=== PATIENT | male | born 1940 | race Caucasian/White ===

== ENCOUNTER 2020-07-27 11:03 | Inpatient (IN) | payer OTHER, BC ==
[2020-07-27 12:36] LABS: BASO % 0.5 % (0-2.0); EOS % 0.3 % (0-4.5); HEMATOCRIT 45.7 % (35.4-49); HEMOGLOBIN 14.8 GM/dL (11.7-16.9); LYMPH % 10.2 % (8-40); MCH 28.6 pg (25.7-33.7); MCHC 32.3 g/dl (32.0-35.9); MEAN CELL VOLUME 88.6 fl (80-96); MEAN PLT VOLUME 8.7 fl (7.5-11.1); PLATELET COUNT 277 K/MM3 (134-434); RBC 5.16 M/mm3 (4.00-5.60); RDW 14.5 % (11.9-15.9); WHITE BLOOD COUNT 11.9 K/mm3 (4.0-10.0)
[2020-07-27 12:49] LABS: CALCIUM 9.4 mg/dL (8.5-10.1)
[2020-07-27 12:50] LABS: ALBUMIN 3.1 g/dl (3.4-5.0); BLOOD UREA NITROGEN 19.4 mg/dL (7-18)
[2020-07-27 12:53] LABS: CREATININE 0.9 mg/dL (0.55-1.3); INR 1.07 (0.83-1.09); PROTHROMBIN TIME (PATIENT) 13.1 SEC (9.7-13.0)
[2020-07-27 12:54] LABS: TOT PROT 7.1 g/dl (6.4-8.2)
[2020-07-27 12:56] LABS: ACTIVATED PTT 23.5 SECONDS (25.2-36.5)
[2020-07-27] MEDS ORDERED: SODIUM CHLORIDE 1,000 ML IV STA (13:14)
[2020-07-27] MEDS ORDERED: AZITHROMYCIN IVPB 500 MG in DEXTROSE 5%-WATER - 250 ML IVPB ONE (14:17)
[2020-07-27] MEDS ORDERED: CEFTRIAXONE 1,000 MG in DEXTROSE 5%-WATER - 50 ML IVPB ONE (14:17)
[2020-07-27] MEDS ORDERED: AZITHROMYCIN IVPB 500 MG/250 ML BAG IVPB ONE (14:28)
[2020-07-27] MEDS ORDERED: CEFTRIAXONE 1 GM/50 ML BAG ONE (14:28)
[2020-07-27 18:02] LABS: EPI CELLS 15 /uL (0-25.1); HYALINE CASTS 3 /uL (0-3.1); URINE APPEARANCE CLEAR; URINE BACTERIA 14 /uL (0-1359); URINE BILIRUBIN NEGATIVE (NEGATIVE); URINE COLOR DK YELLOW; URINE GLUCOSE (UA) NEGATIVE (NEGATIVE); URINE KETONE TRACE (NEGATIVE); URINE LEUK ESTERASE NEGATIVE (NEGATIVE); URINE NITRITE NEGATIVE (NEGATIVE); URINE PROTEIN TRACE (NEGATIVE); URINE WBC 11 /uL (0-25.8)
[2020-07-27 18:21] LABS: URINE RBC 95.1 /uL (0-23.9)
[2020-07-27 18:31] LABS: COCAINE, UR NEGATIVE ng/ml (CUTOFF=300); URINE AMPHETAMINES NEGATIVE ng/ml (CUTOFF=500); URINE BARBITURATES NEGATIVE ng/ml (CUTOFF=200); URINE BENZODIAZEPINES NEGATIVE ng/ml (CUTOFF=200)
[2020-07-27 18:32] LABS: METHADONE, UR NEGATIVE ng/ml (CUTOFF=300)
[2020-07-27 18:36] LABS: OPIATES, URI NEGATIVE ng/ml (CUTOFF=300); PHENCYCLIDINE,URINE NEGATIVE ng/ml (CUTOFF=25)
[2020-07-27] MEDS ORDERED: LACTATED RINGERS SOLUTION 1,000 ML/1,000 ML INFUS.BAG IV SCH (19:30)
[2020-07-27] MEDS ORDERED: QUEtiapine FUMARATE 50 MG TABLET ONE (21:20)
[2020-07-27] MEDS: QUEtiapine FUMARATE 50 MG TABLET PO SCH (21:33)
[2020-07-27] MEDS: HEPARIN NA (PORCINE) 5,000 UNITS/ML 1ML VIAL SQ SCH (21:33)
[2020-07-27] MEDS ORDERED: QUEtiapine FUMARATE 100 MG TABLET (FP) PO SCH (22:00)
[2020-07-28 07:40] LABS: BASO % 0.8 % (0-2.0); EOS % 1.2 % (0-4.5); HEMATOCRIT 37.2 % (35.4-49); HEMOGLOBIN 11.9 GM/dL (11.7-16.9); LYMPH % 16.2 % (8-40); MEAN CELL VOLUME 87.6 fl (80-96); MEAN PLT VOLUME 8.2 fl (7.5-11.1); MONO % 7.5 % (3.8-10.2); NEUT % 74.3 % (42.8-82.8); PLATELET COUNT 192 K/MM3 (134-434); POTASSIUM 3.6 mmol/L (3.5-5.1); RBC 4.25 M/mm3 (4.00-5.60); RDW 14.4 % (11.9-15.9); WHITE BLOOD COUNT 9.7 K/mm3 (4.0-10.0)
[2020-07-28 07:44] LABS: ALBUMIN 2.6 g/dl (3.4-5.0); BLOOD UREA NITROGEN 18.3 mg/dL (7-18); CALCIUM 8.6 mg/dL (8.5-10.1); MAGNESIUM 1.7 mg/dL (1.8-2.4)
[2020-07-28 07:47] LABS: CREATININE 0.7 mg/dL (0.55-1.3)
[2020-07-28 07:49] LABS: BILIRUBIN,TOTAL 0.8 mg/dL (0.2-1); TOT PROT 5.7 g/dl (6.4-8.2)
[2020-07-28] MEDS ORDERED: RAMIPRIL 5 MG CAPSULE PO SCH (10:00)
[2020-07-28] MEDS ORDERED: AZITHROMYCIN IVPB 500 MG/250 ML BAG IVPB SCH (10:00)
[2020-07-28] MEDS ORDERED: TAMSULOSIN HCL 0.4 MG CAP PO SCH (10:00)
[2020-07-28] MEDS ORDERED: CEFTRIAXONE 1 GM in DEXTROSE 5%-WATER - 50 ML IVPB SCH (10:00)
[2020-07-28] MEDS ORDERED: DEXTROSE 5%-WATER - 50 ML IVPB ONE (10:33)
[2020-07-28] MEDS ORDERED: cefTRIAXone SODIUM 1 GM VIAL ONE (10:33)
[2020-07-28] MEDS: QUEtiapine FUMARATE 50 MG TABLET PO SCH ×2 (10:39→20:59)
[2020-07-28] MEDS: HEPARIN NA (PORCINE) 5,000 UNITS/ML 1ML VIAL SQ SCH (10:40)
[2020-07-28] MEDS ORDERED: AMMONIUM LACTATE 12% LOTION 225 GM BOTTLE TP PRN ×2 (12:12→14:38)
[2020-07-28] MEDS: LACTATED RINGERS SOLUTION 1,000 ML/1,000 ML INFUS.BAG IV SCH (17:30)
[2020-07-28] MEDS: APIXABAN 5 MG TABLET PO SCH (20:59)
[2020-07-28] MEDS ORDERED: HEPARIN NA (PORCINE) 5,000 UNITS/ML 1ML VIAL SQ SCH (22:00)
[2020-07-29 08:01] LABS: BASO % 0.9 % (0-2.0); EOS % 5.8 % (0-4.5); HEMOGLOBIN 11.9 GM/dL (11.7-16.9); LYMPH % 18.7 % (8-40); MEAN PLT VOLUME 8.1 fl (7.5-11.1); MONO % 6.7 % (3.8-10.2); NEUT % 67.9 % (42.8-82.8); PLATELET COUNT 182 K/MM3 (134-434); RDW 14.4 % (11.9-15.9)
[2020-07-29 08:17] LABS: POTASSIUM 3.4 mmol/L (3.5-5.1)
[2020-07-29 08:19] LABS: ALBUMIN 2.6 g/dl (3.4-5.0); BLOOD UREA NITROGEN 22.7 mg/dL (7-18); CALCIUM 8.9 mg/dL (8.5-10.1); MAGNESIUM 1.9 mg/dL (1.8-2.4)
[2020-07-29 08:23] LABS: CREATININE 0.7 mg/dL (0.55-1.3)
[2020-07-29 08:24] LABS: BILIRUBIN,TOTAL 0.7 mg/dL (0.2-1); TOT PROT 5.6 g/dl (6.4-8.2)
[2020-07-29] MEDS ORDERED: POTASSIUM CHLORIDE ORAL LIQUID 20 MEQ/15 ML PO ONE (09:04)
[2020-07-29] MEDS ORDERED: DEXTROSE 5%-WATER - 50 ML IVPB ONE (09:59)
[2020-07-29] MEDS ORDERED: cefTRIAXone SODIUM 1 GM VIAL ONE (09:59)
[2020-07-29] MEDS: AZITHROMYCIN IVPB 500 MG/250 ML BAG IVPB SCH (10:11)
[2020-07-29] MEDS: RAMIPRIL 5 MG CAPSULE PO SCH (10:11)
[2020-07-29] MEDS: CEFTRIAXONE 1 GM in DEXTROSE 5%-WATER - 50 ML IVPB SCH (10:11)
[2020-07-29] MEDS: TAMSULOSIN HCL 0.4 MG CAP PO SCH (10:11)
[2020-07-29] MEDS: APIXABAN 5 MG TABLET PO SCH ×2 (10:12→21:57)
[2020-07-29] MEDS: QUEtiapine FUMARATE 50 MG TABLET PO SCH ×2 (10:12→21:56)
[2020-07-29] MEDS: PANTOPRAZOLE 40 MG TABLET PO SCH (11:04)
[2020-07-29] MEDS: DOCUSATE SODIUM 100 MG CAPSULE (FP) PO SCH ×2 (14:17→21:56)
[2020-07-29 15:08] VITALS: BMI 24.9
[2020-07-29] MEDS: LACTATED RINGERS SOLUTION 1,000 ML/1,000 ML INFUS.BAG IV SCH (16:30)
[2020-07-29] MEDS: ATORVASTATIN CA 80 MG TABLET (FP) PO SCH (21:58)
[2020-07-30] MEDS: DOCUSATE SODIUM 100 MG CAPSULE (FP) PO SCH ×3 (05:36→21:55)
[2020-07-30 07:53] LABS: POTASSIUM 3.8 mmol/L (3.5-5.1)
[2020-07-30 07:55] LABS: BASO % 0.8 % (0-2.0); EOS % 6.6 % (0-4.5); HEMATOCRIT 36.6 % (35.4-49); HEMOGLOBIN 12.3 GM/dL (11.7-16.9); LYMPH % 17.8 % (8-40); MCH 29.2 pg (25.7-33.7); MCHC 33.6 g/dl (32.0-35.9); MEAN CELL VOLUME 86.9 fl (80-96); MEAN PLT VOLUME 8.3 fl (7.5-11.1); MONO % 6.4 % (3.8-10.2); NEUT % 68.4 % (42.8-82.8); PLATELET COUNT 211 K/MM3 (134-434); RBC 4.22 M/mm3 (4.00-5.60); RDW 14.3 % (11.9-15.9); WHITE BLOOD COUNT 8.9 K/mm3 (4.0-10.0)
[2020-07-30 08:01] LABS: ALBUMIN 2.6 g/dl (3.4-5.0); BLOOD UREA NITROGEN 19.6 mg/dL (7-18); MAGNESIUM 1.8 mg/dL (1.8-2.4)
[2020-07-30 08:04] LABS: CREATININE 0.6 mg/dL (0.55-1.3)
[2020-07-30 08:05] LABS: BILIRUBIN,TOTAL 0.6 mg/dL (0.2-1); TOT PROT 5.8 g/dl (6.4-8.2)
[2020-07-30] MEDS ORDERED: DEXTROSE 5%-WATER - 50 ML IVPB ONE (09:41)
[2020-07-30] MEDS ORDERED: cefTRIAXone SODIUM 1 GM VIAL ONE (09:41)
[2020-07-30] MEDS ORDERED: metoPROLOL SUCCINATE 25 MG TAB.SR.24H (FP) PO SCH (10:00)
[2020-07-30] MEDS: TAMSULOSIN HCL 0.4 MG CAP PO SCH (11:20)
[2020-07-30] MEDS: RAMIPRIL 5 MG CAPSULE PO SCH (11:20)
[2020-07-30] MEDS: metoPROLOL SUCCINATE 25 MG TAB.SR.24H (FP) PO SCH (11:20)
[2020-07-30] MEDS: CEFTRIAXONE 1 GM in DEXTROSE 5%-WATER - 50 ML IVPB SCH (11:21)
[2020-07-30] MEDS: PANTOPRAZOLE 40 MG TABLET PO SCH (11:21)
[2020-07-30] MEDS: APIXABAN 5 MG TABLET PO SCH ×2 (11:21→21:55)
[2020-07-30] MEDS: QUEtiapine FUMARATE 50 MG TABLET PO SCH ×2 (11:21→21:55)
[2020-07-30] MEDS: AZITHROMYCIN IVPB 500 MG/250 ML BAG IVPB SCH (11:26)
[2020-07-30] MEDS: LACTATED RINGERS SOLUTION 1,000 ML/1,000 ML INFUS.BAG IV SCH ×2 (11:56→14:51)
[2020-07-30] MEDS: ATORVASTATIN CA 80 MG TABLET (FP) PO SCH (21:55)
[2020-07-31] MEDS: DOCUSATE SODIUM 100 MG CAPSULE (FP) PO SCH ×3 (06:37→23:01)
[2020-07-31 08:19] LABS: EOS % 6.4 % (0-4.5); HEMATOCRIT 35.3 % (35.4-49); LYMPH % 16.8 % (8-40); MCH 29.4 pg (25.7-33.7); MCHC 33.9 g/dl (32.0-35.9); MEAN PLT VOLUME 8.5 fl (7.5-11.1); MONO % 7.3 % (3.8-10.2); NEUT % 68.5 % (42.8-82.8); PLATELET COUNT 187 K/MM3 (134-434); RBC 4.06 M/mm3 (4.00-5.60); RDW 14.3 % (11.9-15.9); WHITE BLOOD COUNT 7.9 K/mm3 (4.0-10.0)
[2020-07-31 08:23] LABS: POTASSIUM 3.5 mmol/L (3.5-5.1)
[2020-07-31] MEDS ORDERED: POTASSIUM CHLORIDE TABS 20 MEQ TABLET.ER (FP) PO ONE (08:24)
[2020-07-31 08:29] LABS: CALCIUM 8.4 mg/dL (8.5-10.1)
[2020-07-31 08:30] LABS: ALBUMIN 2.5 g/dl (3.4-5.0); BLOOD UREA NITROGEN 15.2 mg/dL (7-18)
[2020-07-31 08:33] LABS: BILIRUBIN,TOTAL 0.6 mg/dL (0.2-1); CREATININE 0.6 mg/dL (0.55-1.3); TOT PROT 5.5 g/dl (6.4-8.2)
[2020-07-31] MEDS ORDERED: DEXTROSE 5%-WATER - 50 ML IVPB ONE (08:44)
[2020-07-31] MEDS ORDERED: cefTRIAXone SODIUM 1 GM VIAL ONE (08:44)
[2020-07-31] MEDS: RAMIPRIL 5 MG CAPSULE PO SCH (09:00)
[2020-07-31] MEDS: CEFTRIAXONE 1 GM in DEXTROSE 5%-WATER - 50 ML IVPB SCH (09:00)
[2020-07-31] MEDS: QUEtiapine FUMARATE 50 MG TABLET PO SCH ×2 (09:00→23:00)
[2020-07-31] MEDS: APIXABAN 5 MG TABLET PO SCH ×2 (09:00→23:00)
[2020-07-31] MEDS: PANTOPRAZOLE 40 MG TABLET PO SCH (09:00)
[2020-07-31] MEDS: TAMSULOSIN HCL 0.4 MG CAP PO SCH (09:00)
[2020-07-31] MEDS: metoPROLOL SUCCINATE 25 MG TAB.SR.24H (FP) PO SCH (09:01)
[2020-07-31] MEDS: AZITHROMYCIN IVPB 500 MG/250 ML BAG IVPB SCH (09:01)
[2020-07-31] MEDS ORDERED: MAGNESIUM OXIDE 400 MG TABLET (FP) PO ONE (09:45)
[2020-07-31] MEDS: LACTATED RINGERS SOLUTION 1,000 ML/1,000 ML INFUS.BAG IV SCH (23:00)
[2020-07-31] MEDS: ATORVASTATIN CA 80 MG TABLET (FP) PO SCH (23:00)
[2020-08-01] MEDS: DOCUSATE SODIUM 100 MG CAPSULE (FP) PO SCH ×3 (06:43→21:05)
[2020-08-01 07:45] LABS: BASO % 1.3 % (0-2.0); EOS % 6.5 % (0-4.5); HEMATOCRIT 35.3 % (35.4-49); HEMOGLOBIN 11.6 GM/dL (11.7-16.9); LYMPH % 20.7 % (8-40); MCH 28.9 pg (25.7-33.7); MCHC 32.9 g/dl (32.0-35.9); MEAN CELL VOLUME 87.9 fl (80-96); MEAN PLT VOLUME 9.2 fl (7.5-11.1); MONO % 6.6 % (3.8-10.2); NEUT % 64.9 % (42.8-82.8); PLATELET COUNT 199 K/MM3 (134-434); RBC 4.01 M/mm3 (4.00-5.60); RDW 14.6 % (11.9-15.9); WHITE BLOOD COUNT 7.2 K/mm3 (4.0-10.0)
[2020-08-01 08:08] LABS: POTASSIUM 4.2 mmol/L (3.5-5.1)
[2020-08-01 08:14] LABS: CALCIUM 8.3 mg/dL (8.5-10.1)
[2020-08-01 08:15] LABS: ALBUMIN 2.5 g/dl (3.4-5.0); BLOOD UREA NITROGEN 11.1 mg/dL (7-18); MAGNESIUM 1.6 mg/dL (1.8-2.4)
[2020-08-01 08:18] LABS: CREATININE 0.6 mg/dL (0.55-1.3)
[2020-08-01 08:19] LABS: BILIRUBIN,TOTAL 0.4 mg/dL (0.2-1); TOT PROT 5.4 g/dl (6.4-8.2)
[2020-08-01] MEDS ORDERED: MAGNESIUM OXIDE 400 MG TABLET (FP) PO ONE (08:45)
[2020-08-01] MEDS ORDERED: cefTRIAXone SODIUM 1 GM VIAL ONE (10:48)
[2020-08-01] MEDS ORDERED: DEXTROSE 5%-WATER - 50 ML IVPB ONE (10:48)
[2020-08-01] MEDS: TAMSULOSIN HCL 0.4 MG CAP PO SCH (10:51)
[2020-08-01] MEDS: QUEtiapine FUMARATE 50 MG TABLET PO SCH ×2 (10:51→21:05)
[2020-08-01] MEDS: PANTOPRAZOLE 40 MG TABLET PO SCH (10:51)
[2020-08-01] MEDS: RAMIPRIL 5 MG CAPSULE PO SCH (10:51)
[2020-08-01] MEDS: APIXABAN 5 MG TABLET PO SCH ×2 (10:51→21:05)
[2020-08-01] MEDS: CEFTRIAXONE 1 GM in DEXTROSE 5%-WATER - 50 ML IVPB SCH (10:51)
[2020-08-01] MEDS: LACTATED RINGERS SOLUTION 1,000 ML/1,000 ML INFUS.BAG IV SCH (15:45)
[2020-08-01] MEDS: VANCOMYCIN HCL 1,250 MG in DEXTROSE 5%-WATER - 250 ML IVPB SCH (17:24)
[2020-08-01] MEDS: ATORVASTATIN CA 80 MG TABLET (FP) PO SCH (21:05)
[2020-08-02] MEDS: DOCUSATE SODIUM 100 MG CAPSULE (FP) PO SCH ×3 (05:55→21:52)
[2020-08-02 07:42] LABS: EOS % 4.6 % (0-4.5); HEMATOCRIT 37.7 % (35.4-49); HEMOGLOBIN 12.6 GM/dL (11.7-16.9); LYMPH % 24.1 % (8-40); MCH 29.3 pg (25.7-33.7); MCHC 33.6 g/dl (32.0-35.9); MEAN CELL VOLUME 87.3 fl (80-96); MEAN PLT VOLUME 9.1 fl (7.5-11.1); MONO % 5.8 % (3.8-10.2); NEUT % 64.5 % (42.8-82.8); PLATELET COUNT 204 K/MM3 (134-434); RBC 4.32 M/mm3 (4.00-5.60); RDW 14.3 % (11.9-15.9); WHITE BLOOD COUNT 8.6 K/mm3 (4.0-10.0)
[2020-08-02 07:44] LABS: POTASSIUM 4.1 mmol/L (3.5-5.1)
[2020-08-02 07:49] LABS: ALBUMIN 2.8 g/dl (3.4-5.0); BLOOD UREA NITROGEN 9.1 mg/dL (7-18); CALCIUM 9.1 mg/dL (8.5-10.1); MAGNESIUM 1.7 mg/dL (1.8-2.4)
[2020-08-02 07:52] LABS: CREATININE 0.7 mg/dL (0.55-1.3)
[2020-08-02 07:53] LABS: BILIRUBIN,TOTAL 0.6 mg/dL (0.2-1)
[2020-08-02] MEDS ORDERED: MAGNESIUM OXIDE 400 MG TABLET (FP) PO ONE (08:25)
[2020-08-02] MEDS ORDERED: DEXTROSE 5%-WATER - 50 ML IVPB ONE (10:14)
[2020-08-02] MEDS ORDERED: cefTRIAXone SODIUM 1 GM VIAL ONE (10:14)
[2020-08-02] MEDS: APIXABAN 5 MG TABLET PO SCH ×2 (10:43→21:47)
[2020-08-02] MEDS: PANTOPRAZOLE 40 MG TABLET PO SCH (10:43)
[2020-08-02] MEDS: RAMIPRIL 5 MG CAPSULE PO SCH (10:43)
[2020-08-02] MEDS: QUEtiapine FUMARATE 50 MG TABLET PO SCH ×2 (10:43→21:47)
[2020-08-02] MEDS: TAMSULOSIN HCL 0.4 MG CAP PO SCH (10:43)
[2020-08-02] MEDS: CEFTRIAXONE 1 GM in DEXTROSE 5%-WATER - 50 ML IVPB SCH (10:43)
[2020-08-02] MEDS ORDERED: PT OWN MED DRAWER 7, Y5N ONE (16:40)
[2020-08-02] MEDS: VANCOMYCIN HCL 1,250 MG in DEXTROSE 5%-WATER - 250 ML IVPB SCH (16:46)
[2020-08-02 18:15] LABS: BASO % 1.1 % (0-2.0); EOS % 4.1 % (0-4.5); HEMATOCRIT 36.7 % (35.4-49); HEMOGLOBIN 12.3 GM/dL (11.7-16.9); LYMPH % 17.8 % (8-40); MCH 29.3 pg (25.7-33.7); MCHC 33.6 g/dl (32.0-35.9); MEAN PLT VOLUME 8.7 fl (7.5-11.1); MONO % 6.4 % (3.8-10.2); NEUT % 70.6 % (42.8-82.8); PLATELET COUNT 217 K/MM3 (134-434); RBC 4.22 M/mm3 (4.00-5.60); RDW 14.3 % (11.9-15.9); WHITE BLOOD COUNT 7.8 K/mm3 (4.0-10.0)
[2020-08-02 18:31] LABS: POTASSIUM 4.2 mmol/L (3.5-5.1)
[2020-08-02 18:33] LABS: CALCIUM 8.7 mg/dL (8.5-10.1)
[2020-08-02 18:34] LABS: ALBUMIN 2.6 g/dl (3.4-5.0); BLOOD UREA NITROGEN 9.6 mg/dL (7-18); MAGNESIUM 1.7 mg/dL (1.8-2.4)
[2020-08-02 18:37] LABS: CREATININE 0.7 mg/dL (0.55-1.3)
[2020-08-02 18:39] LABS: BILIRUBIN,TOTAL 0.5 mg/dL (0.2-1); TOT PROT 5.8 g/dl (6.4-8.2)
[2020-08-02] MEDS: LACTATED RINGERS SOLUTION 1,000 ML/1,000 ML INFUS.BAG IV SCH (20:27)
[2020-08-02] MEDS: ATORVASTATIN CA 80 MG TABLET (FP) PO SCH (21:51)
[2020-08-03] MEDS: DOCUSATE SODIUM 100 MG CAPSULE (FP) PO SCH ×3 (05:45→21:29)
[2020-08-03] MEDS: TAMSULOSIN HCL 0.4 MG CAP PO SCH (08:11)
[2020-08-03] MEDS ORDERED: DEXTROSE 5%-WATER - 50 ML IVPB ONE (09:40)
[2020-08-03] MEDS ORDERED: cefTRIAXone SODIUM 1 GM VIAL ONE (09:40)
[2020-08-03] MEDS: QUEtiapine FUMARATE 50 MG TABLET PO SCH ×2 (10:11→21:29)
[2020-08-03] MEDS: PANTOPRAZOLE 40 MG TABLET PO SCH (10:11)
[2020-08-03] MEDS: APIXABAN 5 MG TABLET PO SCH ×2 (10:11→21:29)
[2020-08-03] MEDS: RAMIPRIL 5 MG CAPSULE PO SCH (10:12)
[2020-08-03] MEDS: CEFTRIAXONE 1 GM in DEXTROSE 5%-WATER - 50 ML IVPB SCH (10:12)
[2020-08-03] MEDS ORDERED: VANCOMYCIN HCL 1,250 MG in DEXTROSE 5%-WATER - 250 ML IVPB SCH (16:00)
[2020-08-03] MEDS ORDERED: AMMONIUM LACTATE 12% LOTION 225 GM BOTTLE TP PRN (16:31)
[2020-08-03 17:14] LABS: EOS % 3.8 % (0-4.5); HEMATOCRIT 33.9 % (35.4-49); HEMOGLOBIN 11.2 GM/dL (11.7-16.9); LYMPH % 16.7 % (8-40); MEAN CELL VOLUME 87.8 fl (80-96); MEAN PLT VOLUME 9.2 fl (7.5-11.1); MONO % 7.3 % (3.8-10.2); NEUT % 71.2 % (42.8-82.8); PLATELET COUNT 204 K/MM3 (134-434); RBC 3.86 M/mm3 (4.00-5.60); RDW 14.4 % (11.9-15.9); WHITE BLOOD COUNT 8.1 K/mm3 (4.0-10.0)
[2020-08-03] MEDS: LACTATED RINGERS SOLUTION 1,000 ML/1,000 ML INFUS.BAG IV SCH (17:30)
[2020-08-03 17:42] LABS: POTASSIUM 4.2 mmol/L (3.5-5.1)
[2020-08-03 17:44] LABS: ALBUMIN 2.3 g/dl (3.4-5.0); BLOOD UREA NITROGEN 12.2 mg/dL (7-18); CALCIUM 8.2 mg/dL (8.5-10.1); MAGNESIUM 1.5 mg/dL (1.8-2.4)
[2020-08-03 17:47] LABS: CREATININE 0.8 mg/dL (0.55-1.3)
[2020-08-03 17:49] LABS: BILIRUBIN,TOTAL 0.4 mg/dL (0.2-1); TOT PROT 5.2 g/dl (6.4-8.2)
[2020-08-03] MEDS: VANCOMYCIN HCL 1,250 MG in DEXTROSE 5%-WATER - 250 ML IVPB SCH (19:00)
[2020-08-03] MEDS ORDERED: QUEtiapine FUMARATE 25 MG TABLET ONE (21:26)
[2020-08-03] MEDS: ATORVASTATIN CA 80 MG TABLET (FP) PO SCH (21:29)
[2020-08-04] MEDS: DOCUSATE SODIUM 100 MG CAPSULE (FP) PO SCH ×4 (05:40→22:28)
[2020-08-04] MEDS ORDERED: QUEtiapine FUMARATE 25 MG TABLET ONE ×2 (09:28→21:03)
[2020-08-04] MEDS ORDERED: CEFTRIAXONE 1 GM in DEXTROSE 5%-WATER - 50 ML IVPB SCH (10:00)
[2020-08-04] MEDS: APIXABAN 5 MG TABLET PO SCH ×2 (10:11→22:28)
[2020-08-04] MEDS: CEPHALEXIN MONOHYDRATE 500 MG CAPSULE (UD) PO SCH ×2 (10:11→22:28)
[2020-08-04] MEDS: PANTOPRAZOLE 40 MG TABLET PO SCH (10:12)
[2020-08-04] MEDS: QUEtiapine FUMARATE 50 MG TABLET PO SCH ×2 (10:12→22:29)
[2020-08-04] MEDS: TAMSULOSIN HCL 0.4 MG CAP PO SCH (10:12)
[2020-08-04] MEDS: RAMIPRIL 5 MG CAPSULE PO SCH (10:13)
[2020-08-04] MEDS: LACTATED RINGERS SOLUTION 1,000 ML/1,000 ML INFUS.BAG IV SCH (15:36)
[2020-08-04] MEDS ORDERED: VANCOMYCIN HCL 1,250 MG in DEXTROSE 5%-WATER - 250 ML IVPB SCH (16:00)
[2020-08-04] MEDS ORDERED: MAGNESIUM OXIDE 400 MG TABLET (FP) PO ONE (17:41)
[2020-08-04 21:42] LABS: EOS % 4.3 % (0-4.5); HEMATOCRIT 38.2 % (35.4-49); HEMOGLOBIN 12.4 GM/dL (11.7-16.9); LYMPH % 23.6 % (8-40); MCH 28.6 pg (25.7-33.7); MCHC 32.4 g/dl (32.0-35.9); MEAN CELL VOLUME 88.4 fl (80-96); MEAN PLT VOLUME 9.2 fl (7.5-11.1); MONO % 7.2 % (3.8-10.2); NEUT % 63.9 % (42.8-82.8); PLATELET COUNT 247 K/MM3 (134-434); RBC 4.32 M/mm3 (4.00-5.60); RDW 14.5 % (11.9-15.9); WHITE BLOOD COUNT 11.4 K/mm3 (4.0-10.0)
[2020-08-04 22:09] LABS: POTASSIUM 4.8 mmol/L (3.5-5.1)
[2020-08-04 22:11] LABS: CALCIUM 8.7 mg/dL (8.5-10.1)
[2020-08-04 22:12] LABS: ALBUMIN 2.8 g/dl (3.4-5.0); BLOOD UREA NITROGEN 16.1 mg/dL (7-18); MAGNESIUM 1.8 mg/dL (1.8-2.4)
[2020-08-04 22:16] LABS: BILIRUBIN,TOTAL 0.5 mg/dL (0.2-1); TOT PROT 6.2 g/dl (6.4-8.2)
[2020-08-04] MEDS: ATORVASTATIN CA 80 MG TABLET (FP) PO SCH (22:29)
[2020-08-05] MEDS: DOCUSATE SODIUM 100 MG CAPSULE (FP) PO SCH (05:57)
[2020-08-05] MEDS ORDERED: MAGNESIUM OXIDE 400 MG TABLET (FP) PO ONE (06:00)
[2020-08-05] MEDS ORDERED: DOCUSATE NA 100 MG/10 ML UNIT-DOSE CUPS PO SCH (07:54)
[2020-08-05] MEDS ORDERED: QUEtiapine FUMARATE 25 MG TABLET ONE (09:18)
[2020-08-05] MEDS ORDERED: PT OWN MED DRAWER 7, Y5N ONE (09:19)
[2020-08-05] MEDS: TAMSULOSIN HCL 0.4 MG CAP PO SCH (09:33)
[2020-08-05] MEDS: APIXABAN 5 MG TABLET PO SCH (09:33)
[2020-08-05] MEDS: PANTOPRAZOLE 40 MG TABLET PO SCH (09:34)
[2020-08-05] MEDS: CEPHALEXIN MONOHYDRATE 500 MG CAPSULE (UD) PO SCH (09:34)
[2020-08-05] MEDS: QUEtiapine FUMARATE 50 MG TABLET PO SCH (09:35)
[2020-08-05] MEDS: RAMIPRIL 5 MG CAPSULE PO SCH (09:35)
[2020-08-05 11:40] VITALS: TEMP 98
[2020-08-05] MEDS: LACTATED RINGERS SOLUTION 1,000 ML/1,000 ML INFUS.BAG IV SCH ×2 (11:45→16:46)
[2020-08-05 14:29] VITALS: BP 122/86; PULSE 88
[2020-08-05] MEDS ORDERED: DEXAMETHASONE SOD PHOSPHATE 4 MG/1 ML VIAL IVPUSH SCH (16:15)
== END 2020-08-05 17:25 | DRG 64 ==
LOC: JER 11:03 → JERBED 15:42 → J7W 20:30 → J4W 07-28 17:05 → J5S 08-03 15:23
PROVIDERS: ADMIT Family Medicine; ATTEND Nurse Practitioner Acute Care
DX: I63.9 Cerebral infarction, unspecified (principal); G92 Toxic encephalopathy; J18.9 Pneumonia, unspecified organism; K92.2 Gastrointestinal hemorrhage, unspecified; J90 Pleural effusion, not elsewhere classified; I48.91 Unspecified atrial fibrillation; I10 Essential (primary) hypertension; R33.8 Other retention of urine; F03.90 Unspecified dementia, unspecified severity, without behavioral disturbance, psychotic disturbance, mood disturbance, and anxiety; M62.462 Contracture of muscle, left lower leg; M62.461 Contracture of muscle, right lower leg; E83.42 Hypomagnesemia; E87.6 Hypokalemia; N40.0 Benign prostatic hyperplasia without lower urinary tract symptoms; B35.1 Tinea unguium; L85.3 Xerosis cutis; E86.0 Dehydration; D72.829 Elevated white blood cell count, unspecified
CPT/HCPCS: 36415; 70450-TC; 70551-TC; 71045-TC-FY; 71250-TC; 72125-TC; 76604-TC; 80053; 80061; 80307; 81003; 82140; 83036; 83721; 83735; 84100; 84443; 84484; 85025; 85610; 85730; 86850; 86900; 86901; 87040; 87086; 87804; 87899; 93005; 93010; 93306-TC; 93880-TC; 97162-GP; 99285-25; C9803; J1644; U0003

== ENCOUNTER 2020-08-30 17:14 | Inpatient (IN) | payer OTHER, BC ==
[2020-08-30] MEDS ORDERED: SODIUM CHLORIDE 0.9% 500 ML INFUS.BAG IV ONE (21:33)
[2020-08-30 22:00] LABS: BASO % 0.7 % (0-2.0); EOS % 1.2 % (0-4.5); HEMATOCRIT 37.5 % (35.4-49); HEMOGLOBIN 12.4 GM/dL (11.7-16.9); LYMPH % 17.1 % (8-40); MCH 28.8 pg (25.7-33.7); MCHC 32.9 g/dl (32.0-35.9); MEAN CELL VOLUME 87.4 fl (80-96); MEAN PLT VOLUME 7.7 fl (7.5-11.1); MONO % 8.9 % (3.8-10.2); NEUT % 72.1 % (42.8-82.8); PLATELET COUNT 231 K/MM3 (134-434); RDW 15.8 % (11.9-15.9)
[2020-08-30 22:07] LABS: INR 2.07 (0.83-1.09); PROTHROMBIN TIME (PATIENT) 24.9 SEC (9.7-13.0)
[2020-08-30 22:10] LABS: ACTIVATED PTT 37.1 SECONDS (25.2-36.5)
[2020-08-30 22:26] LABS: POTASSIUM 3.2 mmol/L (3.5-5.1)
[2020-08-30 22:29] LABS: ALBUMIN 2.6 g/dl (3.4-5.0); BLOOD UREA NITROGEN 26.2 mg/dL (7-18); CALCIUM 8.8 mg/dL (8.5-10.1)
[2020-08-30 22:32] LABS: CREATININE 2.2 mg/dL (0.55-1.3)
[2020-08-30 22:34] LABS: TOT PROT 6.3 g/dl (6.4-8.2)
[2020-08-30] MEDS ORDERED: CEFTRIAXONE 2,000 MG in DEXTROSE 5%-WATER - 50 ML IVPB ONE (22:38)
[2020-08-30] MEDS ORDERED: VANCOMYCIN 1 GM in D5W (PRE-DOCKED) 1,000 MG/250 ML IVPB ONE (22:39)
[2020-08-30] MEDS ORDERED: WATER IVPB ONE (22:40)
[2020-08-30] MEDS ORDERED: DEXTROSE 5% IVPB ONE (22:40)
[2020-08-30] MEDS ORDERED: ACYCLOVIR IVPB ONE (22:40)
[2020-08-30] MEDS ORDERED: AMPICILLIN - 2 GM in SODIUM CHLORIDE 100 ML IVPB ONE (22:41)
[2020-08-30] MEDS ORDERED: DEXTROSE 5%-WATER 500 ML PVC-FREE INFUS.BAG IV ONE (23:00)
[2020-08-30] MEDS ORDERED: KCL 10 MEQ IVPB 10 MEQ/100 ML INFUS.BAG IVPB ONE (23:09)
[2020-08-30] MEDS: KCL 10 MEQ IVPB 10 MEQ/100 ML INFUS.BAG IVPB SCH (23:17)
[2020-08-30] MEDS ORDERED: DEXTROSE 5%-WATER - 1,000 ML IV SCH (23:30)
[2020-08-31] MEDS: KCL 10 MEQ IVPB 10 MEQ/100 ML INFUS.BAG IVPB SCH ×4 (00:30→17:35)
[2020-08-31] MEDS ORDERED: NITROGLYCERIN 2% OINTMENT - 1GM PACKET TD PRN (00:45)
[2020-08-31] MEDS ORDERED: HEPARIN NA (PORCINE) 5,000 UNITS/ML 1ML VIAL SQ SCH (06:00)
[2020-08-31] MEDS ORDERED: valACYclovir HCL 500 MG TABLET (FP) GT SCH ×2 (06:00→10:00)
[2020-08-31 07:22] LABS: BASO % 0.6 % (0-2.0); EOS % 1.9 % (0-4.5); HEMATOCRIT 37.4 % (35.4-49); HEMOGLOBIN 12.5 GM/dL (11.7-16.9); MCH 29.1 pg (25.7-33.7); MCHC 33.4 g/dl (32.0-35.9); MEAN CELL VOLUME 87.3 fl (80-96); MEAN PLT VOLUME 7.9 fl (7.5-11.1); MONO % 8.6 % (3.8-10.2); NEUT % 72.9 % (42.8-82.8); PLATELET COUNT 233 K/MM3 (134-434); RBC 4.28 M/mm3 (4.00-5.60); RDW 15.7 % (11.9-15.9)
[2020-08-31 07:42] LABS: POTASSIUM 3.1 mmol/L (3.5-5.1)
[2020-08-31 07:50] LABS: ALBUMIN 2.5 g/dl (3.4-5.0); BLOOD UREA NITROGEN 25.1 mg/dL (7-18)
[2020-08-31 07:52] LABS: CALCIUM 8.5 mg/dL (8.5-10.1)
[2020-08-31 07:53] LABS: CREATININE 1.9 mg/dL (0.55-1.3)
[2020-08-31] MEDS ORDERED: ENOXAPARIN NA (PORCINE) 40 MG/0.4 ML DISP.SYRIN SQ SCH (10:00)
[2020-08-31] MEDS ORDERED: D5-1/2NS+40 MEQ KCL - 40 MEQ/1,000 ML INFUS.BAG IV SCH (11:30)
[2020-08-31] MEDS ORDERED: KCL 10 MEQ IVPB 10 MEQ/100 ML INFUS.BAG IVPB ONE ×3 (12:12→14:49)
[2020-08-31] MEDS ORDERED: RAMIPRIL 5 MG CAPSULE ONE (12:13)
[2020-08-31] MEDS ORDERED: APIXABAN 2.5 MG TABLET ONE (12:13)
[2020-08-31] MEDS: RAMIPRIL 5 MG CAPSULE PO SCH (12:33)
[2020-08-31] MEDS: APIXABAN 2.5 MG TABLET PO SCH ×2 (12:34→21:35)
[2020-08-31] MEDS ORDERED: ACYCLOVIR 1000 MG (50MG/ML) VIAL IVPB SCH (15:30)
[2020-08-31] MEDS ORDERED: DEXTROSE 5%-WATER - 1,000 ML with POTASSIUM CHLORIDE 20 MEQ IV SCH ×2 (16:00→19:30)
[2020-08-31] MEDS: DEXTROSE 5% IVPB SCH (17:35)
[2020-08-31] MEDS: WATER IVPB SCH (17:35)
[2020-08-31] MEDS: ACYCLOVIR SODIUM IVPB SCH (17:35)
[2020-08-31] MEDS ORDERED: POTASSIUM CHLORIDE 20 MEQ in DEXTROSE 5%-WATER - 1,000 ML IV SCH (19:31)
[2020-08-31] MEDS: POTASSIUM CHLORIDE 20 MEQ in DEXTROSE 5%-WATER - 1,000 ML IV SCH (21:34)
[2020-08-31] MEDS: CEFAZOLIN 1 GM/D5W 1 GM/50 ML BAG IVPB SCH (21:34)
[2020-08-31] MEDS ORDERED: valACYclovir HCL 500 MG TABLET (FP) PO SCH (22:00)
[2020-09-01] MEDS: DEXTROSE 5% IVPB SCH ×2 (04:21→16:00)
[2020-09-01] MEDS: ACYCLOVIR SODIUM IVPB SCH ×2 (04:21→16:00)
[2020-09-01] MEDS: WATER IVPB SCH ×2 (04:21→16:00)
[2020-09-01] MEDS: POTASSIUM CHLORIDE 20 MEQ in DEXTROSE 5%-WATER - 1,000 ML IV SCH ×2 (05:27→15:53)
[2020-09-01] MEDS: PANTOPRAZOLE 40 MG TABLET PO SCH (11:36)
[2020-09-01] MEDS: TAMSULOSIN HCL 0.4 MG CAP PO SCH (11:36)
[2020-09-01] MEDS: RAMIPRIL 5 MG CAPSULE PO SCH (11:36)
[2020-09-01] MEDS: APIXABAN 2.5 MG TABLET PO SCH ×2 (11:36→21:36)
[2020-09-01] MEDS: QUEtiapine FUMARATE 50 MG TABLET PO SCH ×2 (11:37→21:36)
[2020-09-01] MEDS: CEFAZOLIN 1 GM/D5W 1 GM/50 ML BAG IVPB SCH ×2 (12:16→21:36)
[2020-09-01 12:35] LABS: INR 2.06 (0.82-1.09)
[2020-09-01 12:51] LABS: BASO % 0.5 % (0-2.0); EOS % 3.2 % (0-4.5); HEMATOCRIT 34.8 % (35.4-49); HEMOGLOBIN 11.5 GM/dl (11.7-16.9); LYMPH % 16.2 % (8-40); MEAN PLT VOLUME 7.8 fl (7.5-11.1); MONO % 7.9 % (3.8-10.2); NEUT % 72.2 % (42.8-82.8); PLATELET COUNT 230 K/MM3 (134-434); RBC 3.95 M/mm3 (4.00-5.60); RDW 14.5 % (11.9-15.9); WHITE BLOOD COUNT 9.1 K/mm3 (4.0-10.8)
[2020-09-01 13:02] LABS: CALCIUM 8.4 mg/dl (8.5-10); CREATININE 1.8 mg/dl (0.55-1.3); MAGNESIUM 1.8 mg/dL (1.8-2.4); POTASSIUM 3.3 mmol/L (3.5-5.1)
[2020-09-01] MEDS: DOCUSATE SODIUM 100 MG CAPSULE (FP) PO SCH ×2 (14:43→21:36)
[2020-09-01] MEDS ORDERED: MAGNESIUM SULF 50% (8.12 MEQ/2 ML-1 GM VIAL) IVPB ONE (14:58)
[2020-09-01] MEDS ORDERED: PT OWN MED DRAWER 7, Y5N ONE (15:29)
[2020-09-01] MEDS: KCL 10 MEQ IVPB 10 MEQ/100 ML INFUS.BAG IVPB SCH ×2 (15:53→19:01)
[2020-09-01] MEDS ORDERED: QUEtiapine FUMARATE 25 MG TABLET ONE (21:31)
[2020-09-01] MEDS: ATORVASTATIN CA 80 MG TABLET (FP) PO SCH (21:36)
[2020-09-02] MEDS: POTASSIUM CHLORIDE 20 MEQ in DEXTROSE 5%-WATER - 1,000 ML IV SCH ×3 (01:53→21:53)
[2020-09-02] MEDS: DEXTROSE 5% IVPB SCH ×2 (02:48→15:35)
[2020-09-02] MEDS: WATER IVPB SCH ×2 (02:48→15:35)
[2020-09-02] MEDS: ACYCLOVIR SODIUM IVPB SCH ×2 (02:48→15:35)
[2020-09-02] MEDS: DOCUSATE SODIUM 100 MG CAPSULE (FP) PO SCH ×3 (07:00→21:27)
[2020-09-02 08:47] LABS: INR 1.99 (0.82-1.09); PROTHROMBIN TIME (PATIENT) 21.3 SEC (10.2-13.0)
[2020-09-02 08:54] LABS: BASO % 0.7 % (0-2.0); EOS % 5.4 % (0-4.5); HEMATOCRIT 33.6 % (35.4-49); HEMOGLOBIN 11.1 GM/dl (11.7-16.9); LYMPH % 17.4 % (8-40); MCHC 33.2 g/dl (32.0-35.9); MEAN CELL VOLUME 87.4 fl (80-96); MEAN PLT VOLUME 8.1 fl (7.5-11.1); MONO % 7.5 % (3.8-10.2); PLATELET COUNT 215 K/MM3 (134-434); RBC 3.84 M/mm3 (4.00-5.60); RDW 14.3 % (11.9-15.9); WHITE BLOOD COUNT 8.4 K/mm3 (4.0-10.8)
[2020-09-02 09:15] LABS: CALCIUM 8.4 mg/dl (8.5-10); CREATININE 1.7 mg/dl (0.55-1.3); POTASSIUM 3.8 mmol/L (3.5-5.1)
[2020-09-02] MEDS ORDERED: QUEtiapine FUMARATE 25 MG TABLET ONE ×2 (11:32→21:22)
[2020-09-02] MEDS: CEFAZOLIN 1 GM/D5W 1 GM/50 ML BAG IVPB SCH ×2 (11:40→21:26)
[2020-09-02] MEDS: APIXABAN 2.5 MG TABLET PO SCH ×2 (11:40→21:27)
[2020-09-02] MEDS: TAMSULOSIN HCL 0.4 MG CAP PO SCH (11:41)
[2020-09-02] MEDS: KCL 10 MEQ IVPB 10 MEQ/100 ML INFUS.BAG IVPB SCH ×2 (11:41→13:45)
[2020-09-02] MEDS: PANTOPRAZOLE 40 MG TABLET PO SCH (11:43)
[2020-09-02] MEDS: QUEtiapine FUMARATE 50 MG TABLET PO SCH ×2 (11:43→21:28)
[2020-09-02] MEDS ORDERED: SODIUM CHLORIDE FOR INHALATION 3 ML VIAL.NEB IH PRN (11:46)
[2020-09-02] MEDS ORDERED: OXYMETAZOLINE 0.05% NASAL SOLUTION 15 ML BOTTLE NS ONE (12:30)
[2020-09-02 18:05] LABS: CALCIUM 8.4 mg/dl (8.5-10); CREATININE 1.6 mg/dl (0.55-1.3); POTASSIUM 4.2 mmol/L (3.5-5.1)
[2020-09-02] MEDS: ATORVASTATIN CA 80 MG TABLET (FP) PO SCH (21:27)
[2020-09-03] MEDS: WATER IVPB SCH ×2 (04:13→16:00)
[2020-09-03] MEDS: ACYCLOVIR SODIUM IVPB SCH ×2 (04:13→16:00)
[2020-09-03] MEDS: DEXTROSE 5% IVPB SCH ×2 (04:13→16:00)
[2020-09-03] MEDS: DOCUSATE SODIUM 100 MG CAPSULE (FP) PO SCH ×3 (05:39→21:32)
[2020-09-03] MEDS: POTASSIUM CHLORIDE 20 MEQ in DEXTROSE 5%-WATER - 1,000 ML IV SCH (06:33)
[2020-09-03 09:46] LABS: BASO % 0.6 % (0-2.0); EOS % 7.3 % (0-4.5); HEMOGLOBIN 10.9 GM/dl (11.7-16.9); LYMPH % 18.6 % (8-40); MCH 29.8 pg (25.7-33.7); MCHC 34.2 g/dl (32.0-35.9); MEAN CELL VOLUME 87.1 fl (80-96); MONO % 6.2 % (3.8-10.2); NEUT % 67.3 % (42.8-82.8); PLATELET COUNT 205 K/MM3 (134-434); RBC 3.67 M/mm3 (4.00-5.60); RDW 14.2 % (11.9-15.9); WHITE BLOOD COUNT 9.1 K/mm3 (4.0-10.8)
[2020-09-03 09:47] LABS: ALBUMIN 2.5 g/dl (3.4-5.0); BILIRUBIN,TOTAL 0.9 mg/dl (0.2-1); CALCIUM 8.2 mg/dl (8.5-10); CREATININE 1.5 mg/dl (0.55-1.3); MAGNESIUM 1.8 mg/dL (1.8-2.4); PHOSPHOROUS 2.5 mg/dl (2.5-4.9); POTASSIUM 3.8 mmol/L (3.5-5.1); TOT PROT 5.5 g/dl (6.4-8.2)
[2020-09-03] MEDS: APIXABAN 2.5 MG TABLET PO SCH ×2 (09:50→21:32)
[2020-09-03] MEDS: TAMSULOSIN HCL 0.4 MG CAP PO SCH (09:51)
[2020-09-03] MEDS: QUEtiapine FUMARATE 50 MG TABLET PO SCH ×2 (09:51→21:32)
[2020-09-03] MEDS: PANTOPRAZOLE 40 MG TABLET PO SCH (09:51)
[2020-09-03] MEDS: CEFAZOLIN 1 GM/D5W 1 GM/50 ML BAG IVPB SCH ×2 (10:01→21:28)
[2020-09-03] MEDS ORDERED: PT OWN MED DRAWER 7, Y5N ONE (17:31)
[2020-09-03] MEDS ORDERED: QUEtiapine FUMARATE 25 MG TABLET ONE (21:09)
[2020-09-03] MEDS: ATORVASTATIN CA 80 MG TABLET (FP) PO SCH (21:32)
[2020-09-04] MEDS ORDERED: PT OWN MED DRAWER 7, Y5N ONE (03:04)
[2020-09-04] MEDS: DEXTROSE 5% IVPB SCH (03:05)
[2020-09-04] MEDS: ACYCLOVIR SODIUM IVPB SCH (03:05)
[2020-09-04] MEDS: WATER IVPB SCH (03:05)
[2020-09-04] MEDS: DOCUSATE SODIUM 100 MG CAPSULE (FP) PO SCH ×3 (06:03→23:11)
[2020-09-04] MEDS: POTASSIUM CHLORIDE 20 MEQ in DEXTROSE 5%-WATER - 1,000 ML IV SCH ×2 (06:04→09:59)
[2020-09-04] MEDS ORDERED: QUEtiapine FUMARATE 25 MG TABLET ONE (08:31)
[2020-09-04 09:20] LABS: BASO % 1.3 % (0-2.0); EOS % 6.1 % (0-4.5); HEMATOCRIT 35.9 % (35.4-49); HEMOGLOBIN 11.6 GM/dl (11.7-16.9); LYMPH % 18.3 % (8-40); MCH 28.3 pg (25.7-33.7); MCHC 32.3 g/dl (32.0-35.9); MEAN CELL VOLUME 87.5 fl (80-96); MEAN PLT VOLUME 7.6 fl (7.5-11.1); MONO % 5.6 % (3.8-10.2); NEUT % 68.7 % (42.8-82.8); PLATELET COUNT 223 K/MM3 (134-434); RBC 4.11 M/mm3 (4.00-5.60); RDW 14.1 % (11.9-15.9)
[2020-09-04 09:32] LABS: ALBUMIN 2.5 g/dl (3.4-5.0); BILIRUBIN,TOTAL 1.3 mg/dl (0.2-1); CALCIUM 8.4 mg/dl (8.5-10); CREATININE 1.4 mg/dl (0.55-1.3); MAGNESIUM 1.6 mg/dL (1.8-2.4); POTASSIUM 3.5 mmol/L (3.5-5.1); TOT PROT 5.7 g/dl (6.4-8.2)
[2020-09-04] MEDS: PANTOPRAZOLE 40 MG TABLET PO SCH (09:49)
[2020-09-04] MEDS: CEFAZOLIN 1 GM/D5W 1 GM/50 ML BAG IVPB SCH (09:49)
[2020-09-04] MEDS: APIXABAN 2.5 MG TABLET PO SCH ×3 (09:49→23:12)
[2020-09-04] MEDS: TAMSULOSIN HCL 0.4 MG CAP PO SCH (09:49)
[2020-09-04] MEDS: QUEtiapine FUMARATE 25 MG TABLET PO SCH ×3 (09:56→23:14)
[2020-09-04] MEDS ORDERED: MAGNESIUM SULF 50% (8.12 MEQ/2 ML-1 GM VIAL) IVPB ONE (10:59)
[2020-09-04] MEDS ORDERED: MAGNESIUM SULFATE IN WATER 2 GM/50 ML IVPB IVPB ONE (11:15)
[2020-09-04 16:18] VITALS: BMI 25.3
[2020-09-04] MEDS ORDERED: POTASSIUM CHLORIDE 10 MEQ in DEXTROSE 5%-WATER - 1,000 ML IV SCH (18:00)
[2020-09-04] MEDS: ATORVASTATIN CA 80 MG TABLET (FP) PO SCH (22:59)
[2020-09-05] MEDS: DOCUSATE SODIUM 100 MG CAPSULE (FP) PO SCH ×2 (05:40→14:03)
[2020-09-05 06:59] VITALS: BP 176/104; PULSE 87; TEMP 98.4
[2020-09-05 08:15] LABS: BASO % 0.6 % (0-2.0); EOS % 4.9 % (0-4.5); HEMATOCRIT 34.8 % (35.4-49); HEMOGLOBIN 11.2 GM/dl (11.7-16.9); LYMPH % 12.2 % (8-40); MCH 28.4 pg (25.7-33.7); MCHC 32.3 g/dl (32.0-35.9); MEAN CELL VOLUME 87.9 fl (80-96); MEAN PLT VOLUME 7.4 fl (7.5-11.1); MONO % 5.1 % (3.8-10.2); NEUT % 77.2 % (42.8-82.8); PLATELET COUNT 219 K/MM3 (134-434); RBC 3.96 M/mm3 (4.00-5.60); WHITE BLOOD COUNT 10.2 K/mm3 (4.0-10.8)
[2020-09-05 08:25] LABS: ALBUMIN 2.5 g/dl (3.4-5.0); BILIRUBIN,TOTAL 1.4 mg/dl (0.2-1); CALCIUM 8.3 mg/dl (8.5-10); CREATININE 1.3 mg/dl (0.55-1.3); POTASSIUM 3.6 mmol/L (3.5-5.1); TOT PROT 5.7 g/dl (6.4-8.2)
[2020-09-05] MEDS: APIXABAN 2.5 MG TABLET PO SCH (10:18)
[2020-09-05] MEDS: TAMSULOSIN HCL 0.4 MG CAP PO SCH (10:18)
[2020-09-05] MEDS: QUEtiapine FUMARATE 25 MG TABLET PO SCH (10:18)
[2020-09-05] MEDS: PANTOPRAZOLE 40 MG TABLET PO SCH (10:18)
== END 2020-09-05 15:44 | DRG 682 ==
LOC: JER 17:14 → JERBED 23:08 → UNDODISIN 08-31 16:32 → FM/S 08-31 17:25
PROVIDERS: ADMIT Internal Medicine; ATTEND Nurse Practitioner Acute Care
DX: N17.9 Acute kidney failure, unspecified (principal); G93.41 Metabolic encephalopathy; R47.01 Aphasia; J90 Pleural effusion, not elsewhere classified; E87.0 Hyperosmolality and hypernatremia; B02.8 Zoster with other complications; L03.90 Cellulitis, unspecified; I10 Essential (primary) hypertension; N40.0 Benign prostatic hyperplasia without lower urinary tract symptoms; F03.90 Unspecified dementia, unspecified severity, without behavioral disturbance, psychotic disturbance, mood disturbance, and anxiety; M16.11 Unilateral primary osteoarthritis, right hip; B02.9 Zoster without complications; R04.0 Epistaxis; R13.10 Dysphagia, unspecified; R48.2 Apraxia; L89.519 Pressure ulcer of right ankle, unspecified stage; E87.6 Hypokalemia; G47.33 Obstructive sleep apnea (adult) (pediatric); K59.09 Other constipation; K64.9 Unspecified hemorrhoids; E86.0 Dehydration
CPT/HCPCS: 36415; 70450-TC; 71045-TC-FY; 71250-TC; 76775-TC; 80048; 80053; 83605; 83735; 84100; 84443; 84484; 85025; 85610; 85730; 87040; 93005; 93010; 99285-25; C9803; U0003

== ENCOUNTER 2020-09-13 22:31 | Inpatient (IN) | payer OTHER, BC ==
[2020-09-13 22:50] VITALS: BMI 20.3
[2020-09-13] MEDS ORDERED: LACTATED RINGERS SOLUTION 1000 ML INFUS.BAG IV ONE (22:52)
[2020-09-14] MEDS ORDERED: PIPERACILLIN/TAZOB 4.5 GM 4.5 GM in DEXTROSE 5%-WATER 100 ML IVPB ONE (00:15)
[2020-09-14] MEDS ORDERED: SODIUM CHLORIDE 0.9% 1000 ML INFUS.BAG IV ONE (00:15)
[2020-09-14] MEDS ORDERED: VANCOMYCIN 1 GM in D5W (PRE-DOCKED) 1,000 MG/250 ML IVPB ONE (00:15)
[2020-09-14] MEDS ORDERED: VANCOMYCIN 1 GRAM (PRE-DOCKED) 1,000 MG/250 ML BAG IVPB ONE (00:38)
[2020-09-14 00:52] LABS: BASO % 0.1 % (0-2.0); HEMATOCRIT 28.5 % (35.4-49); HEMOGLOBIN 8.9 GM/dL (11.7-16.9); LYMPH % 4.6 % (8-40); MCH 29.1 pg (25.7-33.7); MCHC 31.4 g/dl (32.0-35.9); MEAN CELL VOLUME 92.6 fl (80-96); MEAN PLT VOLUME 9.5 fl (7.5-11.1); MONO % 2.7 % (3.8-10.2); NEUT % 92.6 % (42.8-82.8); PLATELET COUNT 210 K/MM3 (134-434); RBC 3.08 M/mm3 (4.00-5.60); RDW 16.4 % (11.9-15.9); WHITE BLOOD COUNT 12.5 K/mm3 (4.0-10.0)
[2020-09-14 01:00] LABS: INR 1.62 (0.83-1.09); PROTHROMBIN TIME (PATIENT) 19.7 SEC (9.7-13.0)
[2020-09-14 01:03] LABS: ACTIVATED PTT 36.9 SECONDS (25.2-36.5)
[2020-09-14 01:04] LABS: VENOUS BASE EXCESS -4.3 mmol/L (-2-2); VENOUS O2 SATURATION 59.9 % (70-80); VENOUS PH 7.318 (7.310-7.410)
[2020-09-14 01:12] LABS: ALBUMIN 1.7 g/dl (3.4-5.0); CALCIUM 7.6 mg/dL (8.5-10.1); MAGNESIUM 1.9 mg/dL (1.8-2.4)
[2020-09-14 01:16] LABS: CREATININE 3.3 mg/dL (0.55-1.3)
[2020-09-14 01:17] LABS: BILIRUBIN,TOTAL 1.4 mg/dL (0.2-1); TOT PROT 5.3 g/dl (6.4-8.2)
[2020-09-14 01:52] LABS: BLOOD UREA NITROGEN 51.2 mg/dL (7-18)
[2020-09-14] MEDS ORDERED: LACTATED RINGERS SOLUTION 1,000 ML/1,000 ML INFUS.BAG IV SCH (02:45)
[2020-09-14] MEDS ORDERED: PIPERACILLIN/TAZOB 4.5 GM 4.5 GM/100 ML BAG IVPB ONE (03:52)
[2020-09-14] MEDS ORDERED: PIPERACILLIN/TAZOB 2.25 GM 2.25 GM in DEXTROSE 5%-WATER - 50 ML IVPB SCH ×2 (05:15→09:00)
[2020-09-14] MEDS ORDERED: DEXTROSE 5%-WATER - 1,000 ML IV SCH (05:15)
[2020-09-14] MEDS ORDERED: VANCOMYCIN 1 GM in D5W (PRE-DOCKED) 1,000 MG/250 ML IVPB SCH (05:15)
[2020-09-14 05:49] LABS: BASO % 0.1 % (0-2.0); HEMATOCRIT 34.4 % (35.4-49); HEMOGLOBIN 10.9 GM/dL (11.7-16.9); LYMPH % 10.2 % (8-40); MCH 28.7 pg (25.7-33.7); MCHC 31.5 g/dl (32.0-35.9); MEAN PLT VOLUME 9.3 fl (7.5-11.1); NEUT % 85.7 % (42.8-82.8); PLATELET COUNT 183 K/MM3 (134-434); RBC 3.78 M/mm3 (4.00-5.60); RDW 16.1 % (11.9-15.9); WHITE BLOOD COUNT 17.5 K/mm3 (4.0-10.0)
[2020-09-14 06:09] LABS: POTASSIUM 3.7 mmol/L (3.5-5.1)
[2020-09-14 06:11] LABS: ALBUMIN 1.7 g/dl (3.4-5.0); BLOOD UREA NITROGEN 53.6 mg/dL (7-18); CALCIUM 7.7 mg/dL (8.5-10.1); MAGNESIUM 1.8 mg/dL (1.8-2.4)
[2020-09-14 06:14] LABS: CREATININE 3.4 mg/dL (0.55-1.3)
[2020-09-14 06:15] LABS: PHOSPHOROUS 3.6 mg/dL (2.5-4.9)
[2020-09-14 06:16] LABS: BILIRUBIN,TOTAL 1.4 mg/dL (0.2-1); TOT PROT 5.4 g/dl (6.4-8.2)
[2020-09-14] MEDS ORDERED: SODIUM CHLORIDE 500 ML IV STA (08:34)
[2020-09-14 08:49] VITALS: TEMP 96.5
[2020-09-14] MEDS ORDERED: PIPERACILLIN/TAZOB 2.25 GM 2.25 GM/50 ML BAG IVPB ONE (09:35)
[2020-09-14 10:27] LABS: ANISOCYTOSIS 0; MACROCYTOSIS 0; PLATELET ESTIMATE NORMAL
[2020-09-14 10:40] VITALS: BP 93/65
[2020-09-14 10:49] VITALS: PULSE 96
[2020-09-14 10:56] LABS: POTASSIUM 3.6 mmol/L (3.5-5.1)
[2020-09-14 10:57] LABS: CALCIUM 7.4 mg/dL (8.5-10.1)
[2020-09-14 10:58] LABS: BLOOD UREA NITROGEN 58.1 mg/dL (7-18)
[2020-09-14 11:01] LABS: CREATININE 3.4 mg/dL (0.55-1.3)
[2020-09-14 11:54] LABS: EPI CELLS 16 /uL (0-25.1); HYALINE CASTS 5 /uL (0-3.1); URINE APPEARANCE CLOUDY; URINE BACTERIA 457 /uL (0-1359); URINE BILIRUBIN 1+ (NEGATIVE); URINE COLOR DK YELLOW; URINE GLUCOSE (UA) NEGATIVE (NEGATIVE); URINE KETONE NEGATIVE (NEGATIVE); URINE LEUK ESTERASE 1+ (NEGATIVE); URINE NITRITE NEGATIVE (NEGATIVE); URINE PROTEIN 1+ (NEGATIVE); URINE RBC 40 /uL (0-23.9); URINE WBC 20 /uL (0-25.8)
[2020-09-14] MEDS ORDERED: MORPHINE SULFATE 2 MG/ML VIAL IVPUSH PRN (11:57)
[2020-09-14] MEDS ORDERED: SCOPOLAMINE HYDROBROMIDE 1 PATCH PATCH.TD72 TD SCH (12:00)
[2020-09-16] MEDS ORDERED: VANCOMYCIN 1 GRAM (PRE-DOCKED) 1,000 MG/250 ML BAG IVPB ONE (01:00)
== END 2020-09-14 12:50 | disposition expired | DRG 871 ==
LOC: JER 22:31 → JERBED 23:04
PROVIDERS: ADMIT Internal Medicine; ATTEND Family Medicine
DX: A41.9 Sepsis, unspecified organism (principal); J96.01 Acute respiratory failure with hypoxia; G93.41 Metabolic encephalopathy; J18.9 Pneumonia, unspecified organism; N17.9 Acute kidney failure, unspecified; E87.0 Hyperosmolality and hypernatremia; I24.8 Other forms of acute ischemic heart disease; I10 Essential (primary) hypertension; F03.90 Unspecified dementia, unspecified severity, without behavioral disturbance, psychotic disturbance, mood disturbance, and anxiety; E78.5 Hyperlipidemia, unspecified; I48.91 Unspecified atrial fibrillation; Z79.01 Long term (current) use of anticoagulants; Z66 Do not resuscitate; Z86.73 Personal history of transient ischemic attack (TIA), and cerebral infarction without residual deficits; Z74.01 Bed confinement status; E86.9 Volume depletion, unspecified
CPT/HCPCS: 36415; 71045-TC-FY; 80048; 80053; 81003; 82550; 82553; 82803; 83605; 83735; 83880; 84100; 84484; 85025; 85610; 85730; 86850; 86900; 86901; 87040; 87086; 87186; 93005; 93010; 99285-25; C9803; U0003